=== PATIENT | female | born 1960 | race Caucasian/White ===

== ENCOUNTER 2020-02-19 06:48 | Day surgery (SDC) | payer MEDICARE, OTHER, SELFPAY ==
[2020-02-13 10:28] VITALS: BMI 23.6
--- NOTE | 2020-02-15 10:05 | MHC.SHP ---
Pre-Procedural Eval Section A The patient is an INPATIENT: No The History & Physical has been completed within 30 days and I have reviewed it.: Yes Section B Chief Complaint: Bilateral Cataracts Allergies: Allergies Allergy/AdvReac Type Severity Reaction Status Date / Time codeine [Codeine] Allergy Intermediate HIVES/VOMIT Verified 02/13/20 10:27 ING varenicline [From Chantix] Allergy Intermediate Hives Verified 02/13/20 10:27 tiotropium [From Spiriva] Allergy Blister Verified 02/13/20 10:27 Plan Diagnosis/Plan: Unchanged Patient has been examined and remains a candidate for the planned procedure
--- NOTE | 2020-02-15 15:16 | P.CONAN_ITS ---
Documented by User: Tita Cagle 02/15/20 15:17 HPI - Anesthesia Eval Consult details Narrative: 59yo F for cataract h/o DT's with ETOH withdrawal, last ETOH use 08/2019 [facility]CP [facility] Past Medical History Medical History Anxiety and depression Arthritis Back pain COPD (chronic obstructive pulmonary disease) GERD (gastroesophageal reflux disease) History of alcoholism History of seizure Hx of hepatitis C IBS (irritable bowel syndrome) Marijuana smoker Numbness of both lower extremities Smoker Spinal stenosis Surgical History Surgical History (Updated 02/13/20 @ 10:23 by Lis Guan) History of back surgery History of surgery on left wrist History of surgery on right wrist Hx of cholecystectomy Social History Social History Smoking Status: Current every day smoker Packs Per Day: 1 Cigarettes Per Day: 20.0 Years Smoked: 40+ Smoked in Last 30 Days: Yes Patient Interested in Nicotine Replacement: Yes Patient Given Instructions on How to Stop Smoking: Yes Date Education Initiated: 02/13/20 Use of substances other than those prescribed or required for medical reasons: Yes Advance Directives: No Advance Directives Information Provided: No Advance Directives on File: No Meds Allergies Allergy/AdvReac Type Severity Reaction Status Date / Time codeine [Codeine] Allergy Intermediate HIVES/VOMIT Verified 02/13/20 10:27 ING varenicline [From Chantix] Allergy Intermediate Hives Verified 02/13/20 10:27 tiotropium [From Spiriva] Allergy Blister Verified 02/13/20 10:27 Home Medications Medication Instructions Recorded Confirmed Type fluoxetine 40 mg PO DAILY 02/13/20 02/13/20 History gabapentin 900 mg PO TID 02/13/20 02/13/20 History magnesium oxide 250 mg PO BID 02/13/20 02/13/20 History multivitamin 1 tab PO DAILY 02/13/20 02/13/20 History nicotine [Nicoderm] 1 patch TRANSDERMAL Q24H 02/13/20 02/13/20 History omeprazole 20 mg PO DAILY 02/13/20 02/13/20 History Exam Exam Date and Time: February 15, 2020 1516 Height,Weight and Vital Signs: Height 5 ft 4 in Weight 62.596 kg Assessment and Plan Assessment Anesthesia Assessment: Chart Reviewed Documented by User: Nelida Hirsch 02/19/20 07:30 [facility] Past Medical History Medical History Anxiety and depression Arthritis Back pain COPD (chronic obstructive pulmonary disease) GERD (gastroesophageal reflux disease) History of alcoholism History of seizure Hx of hepatitis C IBS (irritable bowel syndrome) Marijuana smoker Numbness of both lower extremities Smoker Spinal stenosis Surgical History Surgical History (Updated 02/13/20 @ 10:23 by Lis Guan) History of back surgery History of surgery on left wrist History of surgery on right wrist Hx of cholecystectomy Social History Social History Smoking Status: Current every day smoker Packs Per Day: 1 Cigarettes Per Day: 20.0 Years Smoked: 40+ Smoked in Last 30 Days: Yes Patient Interested in Nicotine Replacement: Yes Patient Given Instructions on How to Stop Smoking: Yes Date Education Initiated: 02/13/20 Use of substances other than those prescribed or required for medical reasons: Yes Advance Directives: No Advance Directives Information Provided: No Advance Directives on File: No Meds Allergies Allergy/AdvReac Type Severity Reaction Status Date / Time codeine [Codeine] Allergy Intermediate HIVES/VOMIT Verified 02/13/20 10:27 ING varenicline [From Chantix] Allergy Intermediate Hives Verified 02/13/20 10:27 tiotropium [From Spiriva] Allergy Blister Verified 02/13/20 10:27 Home Medications Medication Instructions Recorded Confirmed Type fluoxetine 40 mg PO DAILY 02/13/20 02/13/20 History gabapentin 900 mg PO TID 02/13/20 02/13/20 History magnesium oxide 250 mg PO BID 02/13/20 02/13/20 History multivitamin 1 tab PO DAILY 02/13/20 02/13/20 History nicotine [Nicoderm] 1 patch TRANSDERMAL Q24H 02/13/20 02/13/20 History omeprazole 20 mg PO DAILY 02/13/20 02/13/20 History Exam Airway Mallampati Class: I TM Dist: >3cm Neck ROM: Full Denture: Upper (No fixadent) and Lower Heart: RRR Lungs: CTA BL Assessment and Plan Assessment Anesthesia Assessment: Anesthesia Plan Discussed and Chart Reviewed Final Anesthetic Review NPO: Yes ASA Class: II Final Preanesthetic Review: Meds/Huseyin Chart Reviewed and Consent Obtained/Reviewed Patient Risk: Low Procedure Risk: Low Anesthetic Plan Anesthetic Plan: MAC: Disposition: Standard PACU
[2020-02-19 07:43] VITALS: BP 105/86; PULSE 72; RESP 18; TEMP 36.9; O2SAT 97
[2020-02-19] MEDS: Tetracaine HCl/PF 0.5% Oph Sol 4 ML DROPS 1 DROP EYE-RIGHT (07:52)
[2020-02-19] MEDS: Lactated Ringers 500 ML 50 ML IV (07:52)
[2020-02-19] MEDS: Tropicamide 1 % Ophth Sol 3 ML BTL 1 DROP EYE-RIGHT ×3 (07:55→08:02)
--- NOTE | 2020-02-19 08:31 | HO.PNOPHT ---
Ophthalmology Procedure Procedure Ophthalmology Viscoelastic: Tracy Shore Dual Pack Pro Ophthalmology Lenses: TECNIS [id number] (21) Procedure Notes: PREOPERATIVE DIAGNOSIS: Decreased visual acuity right eye secondary to cataract POSTOPERATIVE DIAGNOSIS: Same PROCEDURE: Right cataract extraction with intraocular lens insertion SURGEON: Holger Ellis M.D. ANESTHESIA: Topical/MAC ESTIMATED BLOOD LOSS: None COMPLICATIONS: None After obtaining informed consent, the patient was brought to the operating room suite and placed in the supine position. After adequate sedation per anesthesia, topical drops of Tetracaine were given to the right eye. The eye was then prepped and draped in the usual sterile fashion. The operating room microscope was then positioned over the operative eye and a lid speculum placed. A paracentesis was created. Viscoelastic was then instilled into the anterior chamber. A three plane incision was then created temporally, utilizing a 2.85 mm keratome. Capsulotomy forceps were then utilized to create a circular tear capsulotomy. Hydrodissection and hydrodelineation were carried out until adequate mobilization of the nucleus occurred. Phacoemulsification was then utilized to remove the dense central nucleus followed by removal of the cortical material utilizing the automated aspiration irrigation unit. Viscoelastic was instilled into the posterior capsular bag followed by placement of a posterior chamber intraocular lens without difficulty. The residual Viscoelastic was then removed utilizing the automated IA machine. The wound was checked and found to be watertight. The patient tolerated the procedure well and the lid speculum was removed. Intracameral injection of Vigamox 0.1 mL followed by a subtenon injection of Kenalog-40 0.2 mL were administered. The patient will be seen in the a.m.
[2020-02-19 08:34] VITALS: BP 116/66; PULSE 71; RESP 16; TEMP 36.4; O2SAT 95
== END 2020-02-19 09:50 | disposition home or self-care (01) ==
PROVIDERS: PCP Internal Medicine; Visit Provider Ophthalmology
PROC: (CPT 66985; principal; 2020-02-19 08:20)
DX: H25.11 Age-related nuclear cataract, right eye (principal); H52.4 Presbyopia; F32.9 Major depressive disorder, single episode, unspecified; F17.210 Nicotine dependence, cigarettes, uncomplicated; J44.9 Chronic obstructive pulmonary disease, unspecified; J45.20 Mild intermittent asthma, uncomplicated; Z79.51 Long term (current) use of inhaled steroids; Z79.899 Other long term (current) drug therapy
CPT/HCPCS: 66984; J2250; J3010; J3300; V2632

== ENCOUNTER 2020-02-28 08:57 | Outpatient (REF) | payer MEDICARE, SELFPAY ==
--- NOTE | 2020-02-28 10:27 | XR_ITS ---
EXAMINATION: XR HAND, BILATERAL CLINICAL INFORMATION: Pain in unspecified joint. COMPARISON: None TECHNIQUE: Bilateral hands each 3 views. FINDINGS: Right hand: Mild 1st CMC arthritis. Mild 2nd DIP joint arthritis, bony spurring. Slightly dysmorphic appearance of the distal aspect 3rd distal phalanx, as seen on the lateral projection, may reflect sequela of old trauma. Ulnar negative variance. No acute fracture or malalignment is seen. No erosions. No abnormal soft tissue calcification. Left hand: Axna-ju-wvocaabb 1st CMC arthritis. Ulnar negative variance. No fracture or dislocation is seen. No erosions. No abnormal soft tissue calcification. XR/XR hand RT min 3V IMPRESSION: Right hand arthritis, as detailed above. Mild 1st CMC arthritis. Rqrg-wu-sxzilndn left 1st CMC arthritis.
--- NOTE | 2020-02-28 10:27 | XR_ITS ---
EXAMINATION: XR HAND, BILATERAL CLINICAL INFORMATION: Pain in unspecified joint. COMPARISON: None TECHNIQUE: Bilateral hands each 3 views. FINDINGS: Right hand: Mild 1st CMC arthritis. Mild 2nd DIP joint arthritis, bony spurring. Slightly dysmorphic appearance of the distal aspect 3rd distal phalanx, as seen on the lateral projection, may reflect sequela of old trauma. Ulnar negative variance. No acute fracture or malalignment is seen. No erosions. No abnormal soft tissue calcification. Left hand: Jfyu-qj-ucxidusm 1st CMC arthritis. Ulnar negative variance. No fracture or dislocation is seen. No erosions. No abnormal soft tissue calcification. XR/XR hand LT min 3V IMPRESSION: Right hand arthritis, as detailed above. Mild 1st CMC arthritis. Wbpi-qm-hruhtunf left 1st CMC arthritis.
[2020-02-28 11:19] LABS: MANUAL DIFF FLAG NO
[2020-02-28 11:27] LABS: Basophils Percent Auto 0.5 % (0-2); Eosinophils Percent Auto 0.7 % (0-4); Hematocrit 39.7 % (37-47); Hemoglobin 12.7 g/dl (12.0-16.0); Imm Gran Abs Auto 0.02 X10*3/uL (0.00-0.03); Imm Gran Pct Auto 0.3 % (0.0-0.4); Lymphocytes Absolute Auto 2.2 X10*3/uL (1.2-4.9); Mean Corpuscular Volume 84.3 fL (80-98); Mean Platelet Volume 9.4 fL (9.4-12.3); Monocytes Absolute Auto 0.3 X10*3/uL (0.1-1.2); Monocytes Percent Auto 5.7 % (2-11); Neutrophils Absolute Auto 3.4 X10*3/uL (2.0-8.3); Neutrophils Percent Auto 56.8 % (45-73); Platelet Count 251 X10*3/uL (160-400); Red Blood Count 4.71 X10*6/uL (4.20-5.50); Red Cell Distribution Width 13.7 % (11.0-16.0)
[2020-02-28 12:29] LABS: Alanine Aminotransferase 11 U/L (0-31); Albumin Level 4.2 g/dL (3.5-5.0); Alkaline Phosphatase 59 U/L (39-117); Anion Gap 12 (12-20); Aspartate Amino Transferase 18 U/L (5-31); Bilirubin Total 0.3 mg/dL (0.0-1.0); Blood Urea Nitrogen 16 mg/dL (9-16); Calcium 8.7 mg/dL (8.4-10.2); Carbon Dioxide 27 mmol/L (22-29); Chloride 102 mmol/L (96-108); Estimated Glomerular Filt Rate > 60; Glucose Random 92 mg/dL (60-115); Potassium 4.6 mmol/l (3.3-5.1); Rheumatoid Factor < 15.0 IU/mL (<15.0); Sodium 136 mmol/L (135-145)
[2020-02-28 13:00] LABS: Erythrocyte Sedimentation Rate 17 MM/HR (0-20)
[2020-03-01 14:47] LABS: Cyclic Citrullinated Peptide <16 UNITS
[2020-03-01 15:57] LABS: Anti Nuclear Antibody Screen POSITIVE (NEGATIVE); Anti Nuclear Antibody Titer 1:40 titer
== END 2020-02-28 08:58 | disposition home or self-care (01) ==
LOC: HO.LAB 08:57
PROVIDERS: PCP Internal Medicine; Referring Provider Internal Medicine; Visit Provider Student in an Organized Health Care Education/Training Program
DX: M25.50 Pain in unspecified joint (principal); M54.16 Radiculopathy, lumbar region
CPT/HCPCS: 36415; 73130; 80053; 85025; 85652; 86038; 86039; 86140; 86200; 86431; 99202

== ENCOUNTER 2020-03-04 06:57 | Day surgery (SDC) | payer MEDICARE, SELFPAY ==
[2020-02-13 10:32] VITALS: BMI 23.6
[2020-03-04 07:15] VITALS: BP 129/72; PULSE 81; RESP 16; TEMP 36.3; O2SAT 95; BMI 23.6
--- NOTE | 2020-03-04 07:26 | HO.ANESPROP2 ---
FORMERLY [facility] Past Medical History Medical History Anxiety and depression Arthritis Back pain COPD (chronic obstructive pulmonary disease) GERD (gastroesophageal reflux disease) History of alcoholism History of seizure Hx of hepatitis C IBS (irritable bowel syndrome) Lumbar radiculopathy Marijuana smoker Numbness of both lower extremities Smoker Spinal stenosis Surgical History Surgical History History of back surgery History of surgery on left wrist History of surgery on right wrist Hx of cholecystectomy Social History Social History (Updated 02/28/20 @ 09:41 by Deborah Montgomery MD) Alcohol intake: former Smoking Status: Current every day smoker Packs Per Day: 1 Cigarettes Per Day: 20.0 Years Smoked: 40+ Smoked in Last 30 Days: Yes Patient Interested in Nicotine Replacement: Yes Patient Given Instructions on How to Stop Smoking: Yes Date Education Initiated: 02/13/20 Use of substances other than those prescribed or required for medical reasons: Yes Substance Use Frequency: Daily Advance Directives: No Advance Directives Information Provided: No Advance Directives on File: No Meds Allergies Allergy/AdvReac Type Severity Reaction Status Date / Time codeine [Codeine] Allergy Intermediate HIVES/VOMIT Verified 02/28/20 09:21 ING tiotropium [From Spiriva] Allergy Intermediate Blister Verified 02/28/20 09:21 varenicline [From Chantix] Allergy Intermediate Hives Verified 02/28/20 09:21 Home Medications Medication Instructions Recorded Confirmed Type fluoxetine 40 mg PO DAILY 02/13/20 02/28/20 History magnesium oxide 250 mg PO BID 02/13/20 02/28/20 History multivitamin 1 tab PO DAILY 02/13/20 02/28/20 History nicotine [Nicoderm] 1 patch TRANSDERMAL Q24H 02/13/20 02/28/20 History omeprazole 20 mg PO DAILY 02/13/20 02/28/20 History albuterol sulfate 90 mcg/actuation 2 puff INHALATION Q6H PRN 02/28/20 02/28/20 History aerosol inhaler cholecalciferol (vitamin D3) 50 50 mcg PO DAILY 02/28/20 02/28/20 History mcg (2,000 unit) capsule ferrous sulfate 325 mg (65 mg 325 mg PO DAILY PRN 02/28/20 02/28/20 History iron) tablet gabapentin 300 mg capsule 300 mg PO TID cap 02/28/20 02/28/20 History ibuprofen 800 mg tablet 800 mg PO Q8H PRN 02/28/20 02/28/20 History Exam Exam Date and Time: March 04, [id number] Height,Weight and Vital Signs: Height 5 ft 4 in Weight 62.596 kg Last Vital Signs Temp 97.4 F 03/04/20 07:15 Pulse 81 03/04/20 07:15 Resp 16 03/04/20 07:15 BP 129/72 03/04/20 07:15 Pulse Ox 95 03/04/20 07:15 Airway Mallampati Class: II TM Dist: >3cm Neck ROM: Full Denture: Upper Partial: Upper Heart: RRR Lungs: CTA BL Assessment and Plan Assessment Anesthesia Assessment: Anesthesia Plan Discussed and Chart Reviewed Final Anesthetic Review NPO: Yes (Sip water with medicine) ASA Class: II Final Preanesthetic Review: Meds/Allgs Chart Reviewed and Consent Obtained/Reviewed Patient Risk: Intermediate Procedure Risk: Intermediate Anesthetic Plan Anesthetic Plan: MAC: Disposition: Standard PACU
[2020-03-04] MEDS: Lactated Ringers 500 ML 50 ML IV (07:27)
[2020-03-04] MEDS: Tetracaine HCl/PF 0.5% Oph Sol 4 ML DROPS 1 DROP EYE-LEFT (07:28)
[2020-03-04] MEDS: Tropicamide 1 % Ophth Sol 3 ML BTL 1 DROP EYE-LEFT ×3 (07:29→07:40)
--- NOTE | 2020-03-04 09:13 | HO.PNOPHT ---
Ophthalmology Procedure Procedure Date of Service: 03/04/20 Ophthalmology Viscoelastic: Healon Duet Dual Pack Pro Ophthalmology Lenses: TECNIS [id number] (21.5) Procedure Notes: PREOPERATIVE DIAGNOSIS: Decreased visual acuity left eye secondary to cataract POSTOPERATIVE DIAGNOSIS: Same PROCEDURE: Left cataract extraction with intraocular lens insertion SURGEON: Holger Ellis M.D. ANESTHESIA: Topical/MAC ESTIMATED BLOOD LOSS: None COMPLICATIONS: None After obtaining informed consent, the patient was brought to the operation room suite and placed in the supine position. After adequate sedation per anesthesia, topical drops of Tetracaine were given to the left eye. The eye was then prepped and draped in the usual sterile fashion. The operating room microscope was then positioned over the operative eye and a lid speculum placed. A paracentesis was created. Viscoelastic was then instilled into the anterior chamber. A three plane incision was then created temporally, utilizing a 2.85 mm keratome. Capsulotomy forceps were then utilized to create a circular tear capsulotomy. Hydrodissection and hydrodelineation were carried out until adequate mobilization of the nucleus occurred. Phacoemulsification was then utilized to remove the dense central nucleus followed by removal of the cortical material utilizing the automated aspiration irrigation unit. Viscoat elastic was instilled into the posterior capsular bag followed by placement of a posterior chamber intraocular lens without difficulty. The residual Viscoat elastic was then removed utilizing the automated IA machine. The wound was check and found to be watertight. The patient tolerated the procedure well and the lid speculum was removed. Intracameral injection of Vigamox 0.1 mL followed by a subtenon injection of Kenalog-40 0.2 mL were administered. The patient will be seen in the a.m.
[2020-03-04 09:14] VITALS: BP 155/60; PULSE 72; RESP 18; TEMP 36.4; O2SAT 100
== END 2020-03-04 10:01 | disposition home or self-care (01) ==
PROVIDERS: PCP Internal Medicine; Visit Provider Ophthalmology
PROC: (CPT 66985; principal; 2020-03-04 08:40)
DX: H25.12 Age-related nuclear cataract, left eye (principal); H54.7 Unspecified visual loss; J44.9 Chronic obstructive pulmonary disease, unspecified; Z88.8 Allergy status to other drugs, medicaments and biological substances; F12.90 Cannabis use, unspecified, uncomplicated; F32.9 Major depressive disorder, single episode, unspecified; F17.210 Nicotine dependence, cigarettes, uncomplicated; Z79.51 Long term (current) use of inhaled steroids; Z79.899 Other long term (current) drug therapy
CPT/HCPCS: 66984; J2250; J3010; J3300; V2632

== ENCOUNTER → 2020-04-02 10:53 | Outpatient (BNVA) | payer MEDICARE, SELFPAY | PROVIDERS: PCP Internal Medicine; Referring Provider Internal Medicine; Visit Provider Student in an Organized Health Care Education/Training Program | DX: M25.50 Pain in unspecified joint (principal); M54.16 Radiculopathy, lumbar region | CPT/HCPCS: Q3014 ==

== ENCOUNTER 2022-07-30 13:08 | Outpatient (REF) | payer MEDICARE, SELFPAY ==
--- NOTE | ~2022-07-30 | XR_ITS ---
EXAMINATION: XR LUMBOSACRAL SPINE 4 VIEWS CLINICAL INFORMATION: Lumbar radiculopathy. COMPARISON: Most recent lumbar spine MRI dated 04/06/2018. TECHNIQUE: AP, lateral, flexion, and extension views of the lumbosacral spine. FINDINGS: Mild dextrocurvature of the thoracolumbar spine. Straightening of the normal lumbar lordosis, which may be positional or related to muscular spasm. Posterior stabilization hardware and intervertebral disc hardware at L4-L5. No evidence of hardware complication. Minimal grade 1 retrolisthesis of L3 and L4, which appears unchanged with flexion or extension. No loss of vertebral body height. No acute fracture. Multilevel loss of intervertebral disc height with endplate osteophytes, most prominent at L2-L3 and L5-S1. No concerning lytic or blastic osseous lesion. Atherosclerotic calcifications. Right upper quadrant surgical clips. XR/XR lumbar spine 4V min IMPRESSION: Posterior stabilization hardware at L4-L5 without evidence of hardware complication. Minimal grade 1 retrolisthesis of L3 and L4, unchanged with flexion or extension. Multilevel degenerative disc disease, most prominent at L2-L3 and L5-S1.
== END 2022-07-30 13:09 | disposition home or self-care (01) ==
LOC: HO.HOSX 13:08
PROVIDERS: PCP Internal Medicine; Visit Provider Physician Assistant
DX: M54.16 Radiculopathy, lumbar region (principal)
CPT/HCPCS: 72110; 99212

== ENCOUNTER 2022-09-10 14:31 | Outpatient (REF) | payer MEDICARE, SELFPAY | END 2022-09-10 14:32 | disposition home or self-care (01) | LOC: HO.HOSX 14:31 | PROVIDERS: Visit Provider Physician Assistant | DX: Z13.89 Encounter for screening for other disorder (principal) ==

== ENCOUNTER → 2022-09-11 08:53 | Outpatient (BNVA) | payer MEDICARE, SELFPAY | PROVIDERS: PCP Internal Medicine; Visit Provider Physician Assistant | DX: M54.16 Radiculopathy, lumbar region (principal) | CPT/HCPCS: 99212 ==

== ENCOUNTER 2022-12-24 09:00 | Outpatient (RCR) | payer MEDICARE, MEDICAID, SELFPAY | END 2023-05-18 13:07 | disposition home or self-care (01) | LOC: HO.PTWFD 09:00 | PROVIDERS: PCP Internal Medicine; Visit Provider Orthopaedic Surgery Orthopaedic Trauma | DX: M54.16 Radiculopathy, lumbar region (principal); Z98.1 Arthrodesis status | CPT/HCPCS: 97110; 97162; 97535 ==

== ENCOUNTER 2023-07-23 12:50 | Outpatient (AMB) | payer MEDICARE, MEDICAID, SELFPAY ==
--- NOTE | 2023-07-23 12:52 | A.SPINEOV_ITS ---
Intake Intake Visit Reasons: neck pain Intake Note: Ms. Miranda is here today c/o neck pain. 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 We did a lumbar fusion on her last year with good results. She has been having neck pain and radiating arm pain, worse on the right. She underwent an MRI at [facility] which shows what looks like disc herniation at C6-7 with bilateral neural foraminal stenosis worse on the right. I think this would fit nicely in explain her symptoms. At this point, the pain is not bad enough that I think we can justify surgery. All the non operative options are on the table including PT, cortisone injections kind of medications etc.. For now encouraged her just to watch things and see how it goes but if it continues to get worse we can escalate the treatment and if this eventually gets bad enough it may go down that road of surgery. Time will tell how things will play out. Total amount of time spent in this visit was 20 minutes in discussion of symptoms, cervical MRI imaging results and subsequent plan of care Laurent Carlin MD,PhD [facility] Coding Level of Care Code Est Pt Level 3 (40153) Diagnoses Cervical radiculopathy M54.12
== END 2023-07-23 13:45 | disposition home or self-care (01) ==
PROVIDERS: PCP Internal Medicine; Visit Provider Physician Assistant
DX: M54.12 Radiculopathy, cervical region (principal)
CPT/HCPCS: 99213

== ENCOUNTER → 2023-07-23 12:50 | Outpatient (BNVA) | payer MEDICARE, MEDICAID, SELFPAY | PROVIDERS: PCP Internal Medicine; Visit Provider Physician Assistant | DX: M54.12 Radiculopathy, cervical region (principal) | CPT/HCPCS: 99212 ==

== ENCOUNTER 2023-07-29 12:58 | Outpatient (AMB) | payer MEDICARE, SELFPAY ==
--- NOTE | 2023-07-29 13:03 | A.SPINEOV_ITS ---
Intake Intake Visit Reasons: follow up from 07/22 visit Intake Note: Ms. Miranda is here today to F/u from 07/22 visit's plan. Route Delivery Supervisor Required: No Allergies codeine [Codeine] Allergy (Intermediate, Verified 07/29/23 13:04) HIVES/VOMITING tiotropium [From Spiriva] Allergy (Intermediate, Verified 07/29/23 13:04) Blister varenicline [From Chantix] Allergy (Intermediate, Verified 07/29/23 13:04) Hives Assessment & Plan Assessment & Plan (1) Cervical radiculopathy: Code(s): M54.12 - Radiculopathy, cervical region Plan Mrs Miranda came back in the office today to review her cervical imaging again and to discuss her are right arm pain. When I saw her last week, she was feeling that the right shoulder maybe giving her bigger issues, but the more she thought about it she felt like the radicular pain coming from her neck running down into her arm and hand was probably affecting her more than she thought. She has also been having right subscapular pain as well. She gets tingling of her 4th and 5th digits as well. The pain has been persistent and slowly escalating. She has tried mynr-rin-ntuvgae medications like Tylenol and Motrin etc. without much relief. I reviewed her MRI done at [facility] with her again showing the disc bulge at C6-7, primarily on the right causing moderate foraminal stenosis. We discussed all the surgical and nonsurgical options for this. At this point I am going to refer her to physical therapy, just as a matter of starting the conservative treatment. I do not think it is going to do much for her but she may in the end get some benefit out of it. I think if she fails this ultimately she has a good candidate for an ACDF C6-7. I understand the dermatomal distribution into the 4th and 5th digits does not strictly fit the C7 dermatome, but I do not see anything at the C8 foramen compressing a nerve so she may have just a slightly atypical pattern of sensory distribution. Her pain however is very classic for radiculopathy going into her subscapular region radiating down into her arm and hand. Overall her strength is good and reflexes are fine so we are dealing with a quality of life issue here and she feels as though it is affecting her day-to-day function. For now, she has an upcoming hand surgery and has to recover from that so she is going to do the cervical spine PT and come back to see us once her recovery is complete. Total amount of time spent in this visit was 20 minutes in discussion of symptoms, MRI of cervical spine imaging results and subsequent plan of care Laurent Carlin MD,PhD [facility] Orders: Orders PT Evaluation and Treatment Today M54.12 - Radiculopathy, cervical region Coding Level of Care Code Est Pt Level 3 (00214) Diagnoses Cervical radiculopathy M54.12
== END 2023-07-29 14:21 | disposition home or self-care (01) ==
PROVIDERS: PCP Internal Medicine; Visit Provider Physician Assistant
DX: M54.12 Radiculopathy, cervical region (principal)
CPT/HCPCS: 99213

== ENCOUNTER → 2023-07-29 12:58 | Outpatient (BNVA) | payer MEDICARE, SELFPAY | PROVIDERS: PCP Internal Medicine; Visit Provider Physician Assistant | DX: M54.12 Radiculopathy, cervical region (principal) | CPT/HCPCS: 99212 ==

== ENCOUNTER 2023-10-28 08:00 | Outpatient (RCR) | payer MEDICARE, SELFPAY | END 2024-02-28 09:39 | disposition home or self-care (01) | LOC: HO.PTWFD 08:00 | PROVIDERS: PCP Internal Medicine; Visit Provider Physician Assistant | DX: M54.12 Radiculopathy, cervical region (principal) | CPT/HCPCS: 97110; 97162; 97535 ==